=== PATIENT | female | born 1995 | race Caucasian/White ===

== ENCOUNTER 2018-06-06 21:10 | Emergency (ER) | payer BC, OTHER ==
[2018-06-06 21:35] VITALS: RESP 22; TEMP 98.1
[2018-06-06 22:08] LABS: BASOPHILS % (AUTO) 1 % (0-3); EOSINOPHILS % (AUTO) 1 % (0-9); HEMATOCRIT 42 % (35-47); LYMPHOCYTES % (AUTO) 30.5 % (10-50); MEAN CORPUSCULAR HEMOGLOBIN 29.4 pg (27.0-32.0); MEAN CORPUSCULAR HGB CONC 33.3 gm/dl (32.0-36.0); MEAN CORPUSCULAR VOLUME 88 fL (81-99); MONOCYTES % (AUTO) 10.9 % (0-12); NEUTROPHILS % (AUTO) 56.5 % (37-80)
[2018-06-06 22:18] LABS: INR 1.02 (0.86-1.12)
[2018-06-06 22:44] LABS: ALBUMIN 3.8 gm/dl (3.4-5.0); ALCOHOL < 0.003 gm/dl (0.000-0.08); ALKALINE PHOSPHATASE 60 IU/L (46-116); ALT 182 IU/L (14-63); AMMONIA 10 umol/L (11-32); AST 60 IU/L (15-37); BILIRUBIN,DIRECT 0.3 mg/dl (0.0-0.2); BLOOD UREA NITROGEN 12 mg/dl (7-18); CALCIUM 9.2 mg/dl (8.5-10.1); CARBON DIOXIDE 25.5 mEq/L (21-32); CHLORIDE 106 mMol/L (98-107); CREATININE 0.79 mg/dl (0.60-1.00); GLUCOSE 86 mg/dl (74-106); MAGNESIUM 2.1 mg/dl (1.8-2.4); POTASSIUM 3.7 mMol/L (3.5-5.1); SODIUM 141 mMol/L (136-145); THYROID STIMULATING HORMONE 1.945 uIU/ml (0.358-3.740); TOTAL PROTEIN 6.9 gm/dl (6.4-8.2)
[2018-06-06 23:05] LABS: APPEARANCE,URINE Clear; BILIRUBIN,URINE 1+ (NEGATIVE); COLOR,URINE Dark yellow; GLUCOSE, URINE (UA) NEGATIVE (NEGATIVE); KETONES,URINE NEGATIVE (NEGATIVE); LEUKOCYTE ESTERASE ,URINE NEGATIVE (NEGATIVE); NITRATE,URINE NEGATIVE (NEGATIVE); OCCULT BLOOD,URINE NEGATIVE (NEG-TRACE); UROBILINOGEN,URINE 0.2 (0.2-1.0 EU)
[2018-06-06 23:09] VITALS: BP 114/70; PULSE 146; O2SAT 99
[2018-06-06 23:15] LABS: BACTERIA 1+ (< 1+); CRYSTALS NEGATIVE (0-3 AVE/HPF); EPITHELIAL CELLS NEGATIVE (SQUAMOUS); ICTOTEST,URINE NEGATIVE (NEGATIVE); RBC,URINE NEG (0-3AV/HPF); WBC,URINE 0-3 (0-5AV/HPF)
[2018-06-06 23:16] LABS: AMPHETAMINES NEGATIVE (NEGATIVE); BARBITUATES NEGATIVE (NEGATIVE); BENZODIAZEPINES NEGATIVE (NEGATIVE); CANNABINOL(THC) NEGATIVE (NEGATIVE); COCAINE(COC) NEGATIVE (NEGATIVE); METHADONE NEGATIVE (NEGATIVE); METHAMPHETAMINES POSITIVE (NEGATIVE); OPIATES(OPI) NEGATIVE (NEGATIVE); OXYCODONE(OXY) NEGATIVE (NEGATIVE); PROPOXYPHENE(PPX) NEGATIVE (NEGATIVE); TRICYCLIC ANTIDEPRESSANTS NEGATIVE (NEGATIVE)
[2018-06-06] MEDS ORDERED: ONDANSETRON 4 MG ODT BU ONE (23:31)
[2018-06-06] MEDS ORDERED: ONDANSETRON 4 MG ODT ONE (23:33)
[2018-06-07] MEDS ORDERED: LORAZEPAM 2 MG/ML SOL IM ONE (00:30)
[2018-06-07] MEDS ORDERED: LORAZEPAM 2 MG/ML SOL ONE (00:35)
== END 2018-06-07 00:57 | disposition home or self-care (01) ==
LOC: ED 21:10
DX: F15.10 Other stimulant abuse, uncomplicated (principal); F19.20 Other psychoactive substance dependence, uncomplicated; S71.112D Laceration without foreign body, left thigh, subsequent encounter
CPT/HCPCS: 36415; 80048; 80076; 80305; 80307; 81001; 82140; 83735; 84443; 85025; 85610; 96372; 99283; 99284; J2060; A6232; A9270-GY

== ENCOUNTER 2018-06-22 20:36 | Emergency (ER) | payer OTHER ==
[2018-06-22] MEDS ORDERED: SULFAMETHOXAZOLE/TRIMETHOPRI 800/160 MG PO ONE (21:02)
[2018-06-22 21:04] VITALS: BP 120/80; PULSE 111; RESP 16; TEMP 98.3; O2SAT 98
[2018-06-22] MEDS ORDERED: BACITRACIN 500 U/GM OIN TOP ONE ×2 (21:10→21:11)
[2018-06-22] MEDS ORDERED: SULFAMETHOXAZOLE/TRIMETHOPRI 800/160 MG ONE (21:12)
== END 2018-06-22 21:28 | disposition home or self-care (01) ==
LOC: ED 20:36
DX: L03.116 Cellulitis of left lower limb (principal)
CPT/HCPCS: 99282; A9270-GY

== ENCOUNTER 2018-08-30 03:55 | Emergency (ER) | payer MEDICAID, OTHER ==
[2018-08-30 04:04] VITALS: RESP 16; TEMP 96.7; O2SAT 99
[2018-08-30] MEDS ORDERED: IBUPROFEN 400 MG TAB PO ONE (04:28)
[2018-08-30] MEDS ORDERED: IBUPROFEN 400 MG TAB ONE (04:38)
[2018-08-30 05:28] VITALS: BP 117/77; PULSE 90
== END 2018-08-30 05:36 | disposition home or self-care (01) | DRG 563 ==
LOC: ED 03:55
DX: S63.502A Unspecified sprain of left wrist, initial encounter (principal)
CPT/HCPCS: 73110; 84703; 99282; 99283; A9270-GY

== ENCOUNTER 2018-11-01 16:59 | Emergency (ER) | payer SELFPAY | END 2018-11-01 17:29 | disposition left against medical advice (07) | LOC: ED 16:59 ==